=== PATIENT | female | born 1955 | race African-American/Black ===

== ENCOUNTER 2017-07-24 12:56 | Emergency (ER) | payer MEDICAID ==
[2017-07-24] MEDS ORDERED: Tuberculin 5 TU/0.1 mL UD ID ONE (13:50)
--- NOTE | 2017-07-24 14:08 | ED Physician Chart ---
ED Chief Complaint/HPI - Patient Information Date Seen:: 07/24/17 Time Seen:: 13:25 History of Present Illness:: THE PATIENT HAS NO ACUTE MEDICAL PROBLEM. SHE IS REQUESTING A TUBERCULOSIS SKIN TEST BECAUSE SHE IS ADOPTING A CHILD. PPD SKIN TEST HAS BEEN ORDERED. HER ROUTINE VITAL SIGNS SHOWED THE PATIENT TO BE MARKEDLY HYPERTENSIVE. SHE DENIES ANY ASSOCIATED CHEST PAIN OR DIFFICULTY BREATHING. Allergies:: Allergies Allergy/AdvReac Type Severity Reaction Status Date / Time No Known Allergies Allergy Verified 07/24/17 13:24 Vitals:: Vital Signs - 8 hr 07/24/17 13:24 Temp 98.6 F HR 109 RR 17 BP 175/91 O2 Sat % 100 ED Review of Systems - Review of Systems General/Constitutional: No fever, No chills, Weight loss, No diaphoresis, No loss of appetite Skin: No skin lesions Head: No headache Eyes: No loss of vision, No diplopia ENT: No sore throat Neck: No stiffness Cardio Vascular: No chest pain, orthopnea, No edema Pulmonary: No cough GI: No nausea, No vomiting, No diarrhea, No pain, No melena, No hematochezia, No hematemesis G/U: No dysuria, No hematuria, No nacturia Medical Investigator: No vaginal discharge, No abnormal vaginal bleed Musculoskeletal: No bone or joint pain, No muscle pain Psychiatric: No prior psych history, No depression, No anxiety, No suicidal ideation, No homicidal ideation, No auditory hallucination Hematopoietic: No bruising, No lymphadenopathy Neurological: No syncope, No focal symptoms, No weakness, No paresthesia, No seizure, No dizziness, No confusion, No vertigo Family Medical History - Family Member Mother History Unknown: Yes ED Septic Shock - . Is Septic Shock (SBP<90, OR Lactate>4 mmol\L) present?: No - <6hrs of presentation: Vital Signs: Vital Signs - 8 hr 07/24/17 13:24 Temp 98.6 F HR 109 RR 17 BP 175/91 O2 Sat % 100 ED Discharge Plan - Patient Disposition Admit/Discharge/Transfer: PT DISCHARGED HOME Condition at Disposition: Stable Instructions: Hypertension Additional Instructions: Pls return to ER for PPD check in 2 days.
== END 2017-07-24 14:25 | disposition home or self-care (01) ==
LOC: ER 12:56
DX: Z11.1 Encounter for screening for respiratory tuberculosis (principal)
CPT/HCPCS: Z7502